=== PATIENT | female | born 1955 | race African-American/Black ===

== ENCOUNTER 2016-05-04 13:21 | Inpatient (IN) | payer OTHER ==
[~2016-05-04] VITALS: Ht 160 cm; Wt 73.4 kg
[~2016-05-04 13:21] MED LIST: AMBIEN5 MG PO; CELEXA20 MG PO; CRESTOR5 MG PO; DIOVAN320 MG PO; FLEXERIL10 MG PO; HYDROCHLOROTHIA25 MG PO; HYDROCODON-ACE1 EAC7 PO; JANUMET 50/11 TABLET PO; LEXAPRO10 MG PO; LOPRESSOR100 M1 PO; LOSARTAN-HCTZ1 EAC1 PO; METOPROLOL SUCC50 MG PO; MOTRIN600 MG PO; NAPROSYN500 MG PO; NORVASC10 MG PO; ONE-A-DAY ESSE1 EAC1 PO; PERCOCET 5/31 TABLET PO; PROZAC10 MG PO; SYNTHROID100 MCG PO; SYNTHROID88 MCG PO; TRAMADOL HCL50 MG PO; TRAZODONE HCL50 MG PO; VITAMIN B-12 PO; VITRON-C TABLE1 EACH PO
[2016-05-04 14:19] LABS: HEMATOCRIT 30.2 % (36.0-46.0); MCH 25.9 PG (29.0-34.0); MCHC 31.8 G/DL (30.0-36.0); MCV 81.6 FL (83-99); MEAN PLAT.VOLUME 8.3 uM^3 (9.5-12.4); PLATELET COUNT 352 K/uL (156-360); RBC DIS.WIDTH-CV 16.5 % (11.8-14.6); RBC DIS.WIDTH-SD 47.9 % (39-53); WHITE BLOOD COUNT 8.8 K/uL (4.1-10.2)
[2016-05-04 14:27] LABS: CHLORIDE 96 mEq/L (99-109); POTASSIUM 3.2 mEq/L (3.7-5.4); SODIUM 132 mEq/L (136-147)
[2016-05-04 14:29] LABS: GLUCOSE 107 mg/dL (70-99)
[2016-05-04 14:30] LABS: ANION GAP 12 MEQ/L (2-14)
[2016-05-04 14:31] LABS: TOTAL BILIRUBIN 0.4 mg/dL (0.0-1.0)
[2016-05-04 14:33] LABS: ALKALINE PHOSPHATASE 49 IU/L (3-129); GFR ESTIMATE (CALCULATED) 23 mL/min/
[2016-05-04 14:34] LABS: UREA NITROGEN (BUN) 14 mg/dL (9-23)
[2016-05-04 15:45] LABS: ADD MIUA? YES; BILIRUBIN SMALL; BLOOD TRACE; COLOR YELLOW ((YELLOW)); GLUCOSE (STRIP) NEGATIVE; KETONES TRACE; LEUKOCYTES NEGATIVE; NITRITE NEGATIVE; PH, URINE 5.5 (5-8); PROTEIN (STRIP) 100; SPECIFIC GRAVITY 1.018 (1.000-1.030); UROBILINOGEN 0.2 MG/DL (0.2-1.0)
[2016-05-04 16:09] LABS: BACTERIA 1+; CASTS PRESENT /LPF; CRYSTALS PRESENT; EPITHELIAL CELLS 1+; MUCUS NONE SEEN; RED BLOOD CELLS 0-5 /HPF (0-5); UCUL ADDED? NO; WHITE BLOOD CELLS 0-5 /HPF (0-5)
[2016-05-04 16:10] LABS: AMORPHOUS URATES CRYSTALS 1+; FINE GRANULAR CASTS 0-5 /LPF; HYALINE CASTS RARE /LPF
[2016-05-04] MEDS ORDERED: CRESTOR40 MG PO (17:33)
[2016-05-04] MEDS ORDERED: TYLENOL EXTRA500 MG PO (17:34)
[2016-05-04] MEDS ORDERED: DESYREL100 MG PO (20:24)
[2016-05-04 20:47] VITALS: BP 128/78
[2016-05-04 23:31] VITALS: BP 142/66
[2016-05-05 03:28] VITALS: BP 141/84
[2016-05-05 07:01] LABS: HEMATOCRIT 27.4 % (36.0-46.0); MCH 26.1 PG (29.0-34.0); MCHC 31.4 G/DL (30.0-36.0); MCV 83.3 FL (83-99); MEAN PLAT.VOLUME 8.8 uM^3 (9.5-12.4); PLATELET COUNT 301 K/uL (156-360); RBC DIS.WIDTH-CV 16.6 % (11.8-14.6); RBC DIS.WIDTH-SD 50.7 % (39-53); RED BLOOD COUNT 3.29 M/uL (3.80-5.20); WHITE BLOOD COUNT 7.4 K/uL (4.1-10.2)
[2016-05-05 07:09] LABS: EOSINOPHIL (%) 0.8 % (0-5); EOSINOPHIL COUNT 0.1 K/uL (0-0.3); IMMATURE GRANULOCYTE (%) 0.7 % (0.0-0.7); IMMATURE GRANULOCYTE COUNT 0.1 K/uL; LYMPHOCYTE COUNT 1.4 K/uL (1.0-2.8); MONOCYTE (%) 16.4 % (3-12); MONOCYTE COUNT 1.2 K/uL (0-0.8); NEUTROPHIL (%) 63.5 % (45-76); NEUTROPHIL COUNT 4.7 K/uL (1.8-6.4)
[2016-05-05 07:19] LABS: C DIFF TOXIN POSITIVE (NEGATIVE)
[2016-05-05 07:20] LABS: PROBE CHECK PASS
[2016-05-05 07:27] LABS: ANION GAP 8 MEQ/L (2-14); CHLORIDE 103 MEQ/L (99-109); GLUCOSE 123 mg/dL (70-99); POTASSIUM 3.8 MEQ/L (3.7-5.4); SAMPLE HEMOLYSIS CHECK 0; SAMPLE ICTERIC CHECK 0; SAMPLE LIPEMIA CHECK 0; SODIUM 136 MEQ/L (136-147); UREA NITROGEN (BUN) 11 mg/dL (9-23)
[2016-05-05 07:29] LABS: GFR ESTIMATE (CALCULATED) 59 mL/min/
[2016-05-05 08:18] VITALS: BP 133/85
[2016-05-05 08:20] LABS: HEMATOLOGY COMMENT 1 SMEAR COMPATIBLE; USER ID CCL
[2016-05-05 11:46] VITALS: BP 140/88
[2016-05-05 15:49] VITALS: BP 147/86
[2016-05-05 20:10] VITALS: BP 123/68
[2016-05-05 23:45] VITALS: BP 123/74
[2016-05-06 03:50] VITALS: BP 130/78
[2016-05-06 07:19] LABS: MCH 26.3 PG (29.0-34.0); MCHC 31.5 G/DL (30.0-36.0); MCV 83.6 FL (83-99); MEAN PLAT.VOLUME 8.9 uM^3 (9.5-12.4); PLATELET COUNT 289 K/uL (156-360); RBC DIS.WIDTH-CV 16.5 % (11.8-14.6); RBC DIS.WIDTH-SD 51.1 % (39-53); RED BLOOD COUNT 3.23 M/uL (3.80-5.20)
[2016-05-06 08:00] VITALS: BP 149/86
[2016-05-06 08:02] LABS: ANION GAP 7 MEQ/L (2-14); CHLORIDE 102 MEQ/L (99-109); GFR ESTIMATE (CALCULATED) > 59 mL/min/; GLUCOSE 113 mg/dL (70-99); POTASSIUM 3.9 MEQ/L (3.7-5.4); SAMPLE HEMOLYSIS CHECK 0; SAMPLE ICTERIC CHECK 0; SAMPLE LIPEMIA CHECK 0; SODIUM 137 MEQ/L (136-147); UREA NITROGEN (BUN) 6 mg/dL (9-23)
[2016-05-06 08:33] LABS: HEMATOLOGY COMMENT 1 SMEAR COMPATIBLE; USER ID SDF
[2016-05-06 08:34] LABS: EOSINOPHIL (%) 1.9 % (0-5); EOSINOPHIL COUNT 0.1 K/uL (0-0.3); IMMATURE GRANULOCYTE (%) 1.7 % (0.0-0.7); IMMATURE GRANULOCYTE COUNT 0.1 K/uL; LYMPHOCYTE COUNT 1.7 K/uL (1.0-2.8); MONOCYTE (%) 24.6 % (3-12); MONOCYTE COUNT 1.7 K/uL (0-0.8); NEUTROPHIL COUNT 3.3 K/uL (1.8-6.4)
[2016-05-06] MEDS ORDERED: FLORASTOR250 MG PO (12:18)
[2016-05-06] MEDS ORDERED: VANCOCIN 250 M250 MG PO (12:19)
== END 2016-05-06 12:46 | disposition home or self-care (01) | DRG 372 ==
LOC: EME 13:21 → EXP 13:21 → EDOF 18:26 → 2EAST 18:26
PROVIDERS: Emergency Medicine; Hospitalist; Internal Medicine
DX: A04.7 Enterocolitis due to Clostridium difficile (principal); N17.9 Acute kidney failure, unspecified; E87.6 Hypokalemia; E86.0 Dehydration; D63.8 Anemia in other chronic diseases classified elsewhere; E11.9 Type 2 diabetes mellitus without complications; I10 Essential (primary) hypertension; E78.5 Hyperlipidemia, unspecified; R63.4 Abnormal weight loss; R91.1 Solitary pulmonary nodule; E03.9 Hypothyroidism, unspecified; F32.9 Major depressive disorder, single episode, unspecified
CPT/HCPCS: 74176; 80048; 80053; 81003; 82948; 84443; 85025; 85027; 87493; 99281; 99285; J0744; J1815; J2405; J7030; S0030

== ENCOUNTER → 2016-06-06 | Outpatient (CLI) | payer OTHER ==
[~2016-06-06] MED LIST changes: +CELEXA40 MG PO; +CRESTOR20 MG PO; +CRESTOR40 MG PO; +DAILY VALUE1 EACH PO; +DESYREL100 MG PO; +FLORASTOR250 MG PO; +LEVO-T112 MCG PO; +TYLENOL EXTRA500 MG PO; +ULTRAM50 MG PO; +VANCOCIN 250 M250 MG PO; +VITAMIN B122500 MCG PO
[2016-06-06 09:24] LABS: POINT-OF-CARE METER ID UU14174212
[2016-06-06 09:27] LABS: HEMATOCRIT 27.9 % (36.0-46.0); MCH 26.5 PG (29.0-34.0); MCHC 30.8 G/DL (30.0-36.0); MCV 85.8 FL (83-99); MEAN PLAT.VOLUME 8.8 uM^3 (9.5-12.4); PLATELET COUNT 264 K/uL (156-360); RBC DIS.WIDTH-CV 17.4 % (11.8-14.6); RBC DIS.WIDTH-SD 54.9 % (39-53); RED BLOOD COUNT 3.25 M/uL (3.80-5.20); WHITE BLOOD COUNT 9.7 K/uL (4.1-10.2)
[2016-06-06 09:35] LABS: EOSINOPHIL COUNT 0.1 K/uL (0-0.3); IMMATURE GRANULOCYTE (%) 0.1 % (0.0-0.7); LYMPHOCYTE COUNT 1.7 K/uL (1.0-2.8); MONOCYTE (%) 8.6 % (3-12); MONOCYTE COUNT 0.8 K/uL (0-0.8); NEUTROPHIL (%) 72.6 % (45-76); NEUTROPHIL COUNT 7.1 K/uL (1.8-6.4)
[2016-06-06 09:36] LABS: INTER. NORMALIZED RATIO 1.1; PROTHROMBIN TIME 11.6 (9.2-11.2); PTT 27.6 (25-32)
[2016-06-06 10:18] LABS: ABS NEUTROPHIL COUNT 6.92; ANISOCYTOSIS 2+; HYPOCHROMASIA 3+; MACROCYTES OCC; MICROCYTOSIS 1+; PLAT.SUFFICIENCY ADEQUATE; SPHEROCYTES 1+; USER ID TLW
[2016-06-08 16:12] LABS: Flow Number of Markers 22 (()); Flow Spec Viability 98 % (()); Flow Specimen Type BONE MARROW (())
== END | disposition home or self-care (01) ==
LOC: OPR 08:38 → EDSTATUS 09:00
PROVIDERS: Emergency Medicine; Internal Medicine Hematology & Oncology
PROC: 07DR3ZX Extraction of Iliac Bone Marrow, Percutaneous Approach, Diagnostic (ICD-10-PCS; principal; 2016-06-06)
DX: D64.9 Anemia, unspecified (principal); R71.8 Other abnormality of red blood cells; E03.9 Hypothyroidism, unspecified; R61 Generalized hyperhidrosis; R53.83 Other fatigue; R63.4 Abnormal weight loss
CPT/HCPCS: 77012; 82948; 85007; 85025; 85610; 85730; 85999; 88184 90; 88185 90; 88189 90; 88271 90; 88275 90; 88291 90; J3010

== ENCOUNTER 2016-07-12 16:57 | Observation (INO) | payer OTHER ==
[~2016-07-12] VITALS: Ht 160 cm; Wt 73.3 kg
[2016-07-12 17:31] LABS: HEMATOCRIT 29.2 % (36.0-46.0); MCH 25.4 PG (29.0-34.0); MCHC 29.8 G/DL (30.0-36.0); MCV 85.4 FL (83-99); MEAN PLAT.VOLUME 8.7 uM^3 (9.5-12.4); PLATELET COUNT 296 K/uL (156-360); RBC DIS.WIDTH-CV 16.7 % (11.8-14.6); RBC DIS.WIDTH-SD 52.6 % (39-53); RED BLOOD COUNT 3.42 M/uL (3.80-5.20); WHITE BLOOD COUNT 6.1 K/uL (4.1-10.2)
[2016-07-12 17:41] LABS: CHLORIDE 102 mEq/L (99-109); SODIUM 137 mEq/L (136-147)
[2016-07-12 17:43] LABS: GLUCOSE 79 mg/dL (70-99)
[2016-07-12 17:44] LABS: ANION GAP 7 MEQ/L (2-14)
[2016-07-12 17:47] LABS: GFR ESTIMATE (CALCULATED) > 59 mL/min/; UREA NITROGEN (BUN) 14 mg/dL (9-23)
[2016-07-12 17:51] LABS: TROP-I INTERPRETATION NEGATIVE; TROPONIN-I 0.02 ng/mL (0.0-0.30)
[2016-07-12 18:10] LABS: D-DIMER ELISA 1.45 mg/L FEU (< 0.57)
[2016-07-12 23:36] LABS: TROP-I INTERPRETATION NEGATIVE; TROPONIN-I 0.02 ng/mL (0.0-0.30)
[2016-07-13 00:18] VITALS: BP 125/93
[2016-07-13 04:00] VITALS: BP 134/91
[2016-07-13 06:29] LABS: ANION GAP 5 MEQ/L (2-14); CHLORIDE 101 MEQ/L (99-109); GFR ESTIMATE (CALCULATED) > 59 mL/min/; SAMPLE HEMOLYSIS CHECK 0; SAMPLE ICTERIC CHECK 0; SAMPLE LIPEMIA CHECK 0; SODIUM 135 MEQ/L (136-147); UREA NITROGEN (BUN) 17 mg/dL (9-23)
[2016-07-13 06:30] LABS: TROP-I INTERPRETATION NEGATIVE; TROPONIN-I 0.02 ng/mL (0.0-0.30)
[2016-07-13 06:34] LABS: GLUCOSE 130 mg/dL (70-99)
[2016-07-13 09:32] LABS: ALKALINE PHOSPHATASE 86 IU/L (3-129); LIPASE 31 U/L (1.0-51.0); TOTAL BILIRUBIN 0.2 MG/DL (0.0-1.0)
[2016-07-13 11:46] VITALS: BP 133/90
[2016-07-13 12:29] LABS: POINT-OF-CARE METER ID UU13113831
[2016-07-13] MEDS ORDERED: LOPRESSOR25 MG PO (15:43)
[2016-07-13] MEDS ORDERED: ASPIR-LOW81 MG PO (15:43)
[2016-07-13] MEDS ORDERED: LASIX20 MG PO (15:44)
[2016-07-13 15:46] VITALS: BP 137/86
[2016-07-13] MEDS ORDERED: JANUMET 50/11 TABLET PO (16:16)
== END 2016-07-13 16:30 | disposition home or self-care (01) ==
LOC: EME 16:57 → EDOF 22:14 → 5WEST 07-13 00:06
PROVIDERS: Family Medicine; Hospitalist; Physician Assistant
DX: I11.0 Hypertensive heart disease with heart failure (principal); I50.33 Acute on chronic diastolic (congestive) heart failure; R07.89 Other chest pain; R63.4 Abnormal weight loss; R06.02 Shortness of breath; E11.9 Type 2 diabetes mellitus without complications; E78.5 Hyperlipidemia, unspecified; F32.9 Major depressive disorder, single episode, unspecified; E03.9 Hypothyroidism, unspecified
CPT/HCPCS: 71020; 71275; 76705; 80048; 80076; 82948; 83690; 83880; 84484; 85027; 85379; 93005; 99281; 99285; G0378; J1940

== ENCOUNTER → 2016-07-21 | Day surgery (SDC) | payer OTHER ==
[~2016-07-21] VITALS: Ht 160 cm; Wt 68.0 kg
[~2016-07-21] MED LIST changes: +ASPIR-LOW81 MG PO; +FUROSEMIDE20 MG PO; +LASIX20 MG PO; +LOPRESSOR25 MG PO
[2016-07-21 08:21] LABS: POINT-OF-CARE METER ID UU13113696
[2016-07-21 10:39] LABS: BASE EXCESS 1.9 mEq/L (-3 to +3); BICARBONATE 28.2 mEq/L (22-26); METHEMOGLOBIN 1.6 % (0-1.5); PCO2 51 mm Hg (35-45); PO2 65 mm Hg (80-100); pH 7.35 (7.35-7.45)
[2016-07-21 10:40] LABS: COMMENTS - BLOOD GASES C+; SITE AO
[2016-07-21 10:43] LABS: BASE EXCESS 3.3 mEq/L (-3 to +3); BICARBONATE 29.4 mEq/L (22-26); CARBOXY HGB 1.8 % (0-5); METHEMOGLOBIN 1.9 % (0-1.5); PCO2 52 mm Hg (35-45); pH 7.36 (7.35-7.45)
[2016-07-21 10:44] LABS: COMMENTS - BLOOD GASES C+; PO2 30 mm Hg (80-100); SITE PA
== END | disposition home or self-care (01) ==
LOC: CATH 07:22
PROVIDERS: Internal Medicine Cardiovascular Disease
DX: I25.10 Atherosclerotic heart disease of native coronary artery without angina pectoris (principal); I27.2 Other secondary pulmonary hypertension; I42.0 Dilated cardiomyopathy; I11.0 Hypertensive heart disease with heart failure; I50.22 Chronic systolic (congestive) heart failure; E11.65 Type 2 diabetes mellitus with hyperglycemia; E78.5 Hyperlipidemia, unspecified
CPT/HCPCS: 36600; 82803; 82948; C1760; C1769; C1887; C1894; J1200; J1644; J2250; J3010